=== PATIENT | female | born 1945 | race Caucasian/White ===

== ENCOUNTER 2021-08-27 14:10 | Inpatient (IN) | payer MEDICARE, OTHER ==
[~2021-08-27] VITALS: Ht 167.6 cm; Wt 99.3 kg
[~2021-08-27 14:10] MED LIST: COZAAR50 MG PO; METOPROLOL SUCC50 MG PO; NAPROSYN500 MG PO; NAPROXEN 250 M250 MG PO; NORCO 10-325 T1 EACH PO; NORCO 7.5-3251 EACH PO; NORVASC5 MG PO; PRESERVISION A1 EACH PO; XARELTO10 MG PO
[2021-08-27 15:11] LABS: HEMOGLOBIN 15.1 gm/dl (12.3-15.3); RED BLOOD COUNT 5.07 M/UL (4.00-5.10); WHITE BLOOD COUNT 10.4 K/UL (4.5-11.0)
[2021-08-27 15:46] LABS: BUN/CREATININE RATIO 22 (0-10)
[2021-08-27] MEDS ORDERED: HYDROCHLOROTH12.5 MG PO (17:36)
[2021-08-27] MEDS ORDERED: MELOXICAM7.5 MG PO (17:36)
[2021-08-27] MEDS ORDERED: LATANOPROST2.5 ML OU (17:36)
[2021-08-28 03:00] LABS: HEMOGLOBIN 13.9 gm/dl (12.3-15.3); RED BLOOD COUNT 4.77 M/UL (4.00-5.10); WHITE BLOOD COUNT 8.1 K/UL (4.5-11.0)
[2021-08-28 03:28] LABS: BUN/CREATININE RATIO 27 (0-10)
[2021-08-29 03:26] LABS: BUN/CREATININE RATIO 26 (0-10)
[2021-08-30 03:47] LABS: BUN/CREATININE RATIO 30 (0-10)
[2021-08-31 02:42] LABS: HEMOGLOBIN 12.5 gm/dl (12.3-15.3)
[2021-08-31 03:32] LABS: BUN/CREATININE RATIO 32 (0-10)
[2021-08-31] MEDS ORDERED: BETAPACE 80MG T80 MG PO (15:34)
[2021-08-31] MEDS ORDERED: ELIQUIS 5 MG TAB5 MG PO (15:34)
== END 2021-08-31 15:00 | disposition home or self-care (01) | DRG 309 ==
LOC: ER1 14:10 → PROG CARE 17:36 → CDU 17:36 → PROG CARE 17:36
PROVIDERS: Physician Assistant Medical; ADMIT Internal Medicine
PROC: B24BZZZ Ultrasonography of Heart with Aorta (ICD-10-PCS; principal; 2021-08-28)
DX: I48.0 Paroxysmal atrial fibrillation (principal); J98.11 Atelectasis; I10 Essential (primary) hypertension; Z20.822 Contact with and (suspected) exposure to COVID-19; E66.9 Obesity, unspecified; I45.81 Long QT syndrome; Z96.1 Presence of intraocular lens; I95.9 Hypotension, unspecified; H35.30 Unspecified macular degeneration; H35.029 Exudative retinopathy, unspecified eye; Z96.698 Presence of other orthopedic joint implants; Z79.01 Long term (current) use of anticoagulants; Z90.49 Acquired absence of other specified parts of digestive tract; Z90.710 Acquired absence of both cervix and uterus; Z82.49 Family history of ischemic heart disease and other diseases of the circulatory system; Z80.42 Family history of malignant neoplasm of prostate; Z98.42 Cataract extraction status, left eye; Z98.41 Cataract extraction status, right eye; Z68.35 Body mass index [BMI] 35.0-35.9, adult
CPT/HCPCS: ECHO; 36415; 71045; 80048; 80053; 82550; 82553; 83735; 83874; 84439; 84443; 84484; 85014; 85018; 85025; 85027; 85610; 85730; 93005; 93306; 96374; 96375; 99285; G0378; J1644; J1650; U0002